=== PATIENT | female | born 1990 | race Hispanic/Latino ===

== ENCOUNTER 2023-05-23 19:17 | Day surgery (SDC) | payer OTHER ==
[2023-05-23 19:34] VITALS: BMI 27.8
== END 2023-05-23 21:40 | disposition home or self-care (01) ==
LOC: CSHLD/OP 19:17
PROVIDERS: ATTEND Obstetrics & Gynecology
DX: O99.891 Other specified diseases and conditions complicating pregnancy (principal); N89.8 Other specified noninflammatory disorders of vagina; O16.3 Unspecified maternal hypertension, third trimester; O44.43 Low lying placenta NOS or without hemorrhage, third trimester; O99.013 Anemia complicating pregnancy, third trimester; D64.9 Anemia, unspecified; R74.01 Elevation of levels of liver transaminase levels; Z3A.40 40 weeks gestation of pregnancy; Z79.82 Long term (current) use of aspirin; Z79.899 Other long term (current) drug therapy; Z87.891 Personal history of nicotine dependence
CPT/HCPCS: 99283

== ENCOUNTER 2023-05-24 05:00 | Inpatient (IN) | payer MEDICAID, OTHER ==
[2023-05-25 01:08] VITALS: BMI 27.6
[2023-05-25] MEDS ORDERED: hydrALAZINE 20 MG/ML VIAL ONE (01:42)
[2023-05-25] MEDS ORDERED: Misoprostol 200 MCG TAB PR PRN (02:00)
[2023-05-25] MEDS ORDERED: Docusate 100 MG CAP PO PRN (02:00)
[2023-05-25] MEDS ORDERED: Methylergonovine 0.2 MG/ML VIAL IM PRN (02:00)
[2023-05-25] MEDS ORDERED: Labetalol HCl 100 MG/20 ML VIAL SLOW IVP PRN (02:00)
[2023-05-25] MEDS ORDERED: Ibuprofen 800 MG TAB PO PRN (02:00)
[2023-05-25] MEDS ORDERED: fentaNYL 50 mcg/mL 1 mL Vial SLOW IVP PRN (02:00)
[2023-05-25] MEDS ORDERED: Acetaminophen 500 MG TAB PO PRN (02:00)
[2023-05-25] MEDS ORDERED: hydrALAZINE 20 MG/ML VIAL SLOW IVP PRN (02:00)
[2023-05-25] MEDS ORDERED: Lorazepam 2 MG/ML VIAL SLOW IVP PRN (02:00)
[2023-05-25] MEDS ORDERED: Calcium Gluc 4.6 MEQ/10 ML (100 MG/ML) SLOW IVP PRN (02:00)
[2023-05-25] MEDS ORDERED: Lidocaine 1% (PF) 30 ML VIAL SC PRN (02:00)
[2023-05-25] MEDS ORDERED: Promethazine HCl 25 MG/ML VIAL IM PRN ×2 (02:00→15:31)
[2023-05-25] MEDS ORDERED: Carboprost 250 MCG/ML AMP IM PRN (02:00)
[2023-05-25] MEDS ORDERED: Tranexamic Acid 1,000 MG/10 ML VIAL IVP PRN (02:00)
[2023-05-25] MEDS ORDERED: Diphenoxylate HCl/Atropine Tablet PO PRN (02:00)
[2023-05-25] MEDS ORDERED: Ondansetron PF 4 MG/2 ML Vial IVP PRN ×2 (02:00→15:31)
[2023-05-25] MEDS ORDERED: Oxytocin 30 units/NS 500 ML 500 ML IV SCH ×2 (02:00)
[2023-05-25] MEDS ORDERED: Misoprostol 100 MCG TAB ONE (02:14)
[2023-05-25 02:21] LABS: #Eosinphils 0.1 10x3/uL (0.0-0.5); #Monocytes 0.5 10x3/uL (0.0-1.1); #Neutrophils 5.1 10x3/uL (1.5-8.4); %Basophils 0.4 % (0.0-2.0); %Eosinophils 0.9 % (0.0-6.0); %Lymphocytes 28.8 % (18.0-47.0); %Monocytes 6.1 % (0.0-10.0); %Neutrophils 63.3 % (40.0-75.0); Hematocrit 38.3 % (34.9-44.5); Hemoglobin 12.6 g/dL (12.0-15.5); Mean Corpuscular HGB CONC 32.9 g/dL (32.0-36.0); Mean Corpuscular Hemoglobin 28.1 pg (27.0-33.0); Mean Corpuscular Volume 85.3 fl (81.6-98.3); Mean Platelet Volume 12.3 fl (7.4-10.4); Platelet Count 266 10x3/uL (150-450); RBC Distribution Width 18.2 % (11.5-14.5); Red Blood Cell (RBC) Count 4.49 10x6/uL (3.90-5.03)
[2023-05-25] MEDS: Misoprostol 100 MCG TAB VAG SCH ×5 (02:24→19:50)
[2023-05-25 02:29] LABS: ALT (SGPT) 13 U/L (8-55); AST (SGOT) 16 U/L (5-34); Albumin 3.6 g/dL (3.5-5.0); Alkaline Phosphatase 230 U/L (40-110); Anion Gap 17 mmol/L (10-20); BUN (Urea Nitrogen) 7 mg/dL (7.0-18.7); Bilirubin, Total 0.6 mg/dL (0.2-1.2); Calc. Creatinine Clearance 144 mL/min (70-130); Calcium 9.7 mg/dL (7.8-10.44); Carbon Dioxide 16 mmol/L (22-29); Chloride 110 mmol/L (98-107); Estimated GFR 123; Globulin 3.1 g/dL (2.4-3.5); Glucose 91 mg/dL (70-105); Protein, Total 6.7 g/dL (6.0-8.3); Sodium 139 mmol/L (136-145)
[2023-05-25] MEDS ORDERED: Magnesium Sulfate 20 gm/500 ml 20 GM/500 ML BAG ONE (02:35)
[2023-05-25] MEDS: Labetalol HCl 100 MG/20 ML VIAL SLOW IVP SCH (02:39)
[2023-05-25] MEDS: Magnesium Sulfate 20 gm/500 ml 20 GM/500 ML BAG IVPB SCH ×3 (02:45→20:47)
[2023-05-25 02:49] LABS: HBSAg Index 0.15 S/CO (0-0.99); Hep B Surf Ag - L&D Non-Reactive S/CO (NonReactive)
[2023-05-25 02:50] LABS: Syphilis Antibody Nonreactive (Nonreactive); Syphilis Antibody Index 0.03 S/CO (<1.00 Non-Reactive)
[2023-05-25 03:50] LABS: Creatinine, Urine Less than 20.00 mg/dL (47-110); Protein, Urine Random Quant Less than 10 mg/dL (1-14)
[2023-05-25] MEDS: Lactated Ringer's 1,000 ML IV SCH ×3 (07:27→15:05)
[2023-05-25] MEDS ORDERED: fentaNYL/Ropivacaine Epidural 100 ML ONE (14:52)
[2023-05-25] MEDS ORDERED: Acetaminophen 325 MG TAB PO PRN (15:31)
[2023-05-25] MEDS ORDERED: Lactated Ringer's 500 ML IV PRN (15:31)
[2023-05-25] MEDS ORDERED: diphenhydrAMINE 50 MG/ML VIAL IVP PRN (15:31)
[2023-05-25] MEDS ORDERED: ePHEDrine Sulfate 50 MG/10 ML VIAL SLOW IVP PRN (15:31)
[2023-05-25] MEDS ORDERED: Naloxone HCl 0.4 mg/ml Vial IVP PRN ×2 (15:31)
[2023-05-25] MEDS ORDERED: Moisturizing Cream (Eucerin) 113 GM JAR TOP PRN (15:31)
[2023-05-25] MEDS ORDERED: Communication Order-Pharmacy FS SCH (15:45)
[2023-05-25] MEDS ORDERED: fentaNYL 2 mcg/Ropivacaine 0.2% Epidural 100 ML CADD EPIDURAL SCH (15:45)
[2023-05-25] MEDS ORDERED: Bupivacaine 0.25% HCL 30 ML VIAL ONE (18:46)
[2023-05-25] MEDS ORDERED: ePHEDrine Sulfate 50 MG/10 ML VIAL ONE (18:46)
[2023-05-25] MEDS ORDERED: Lidocaine 2% MPF 10 ML AMP (For Epidural Use) ONE (18:46)
[2023-05-25] MEDS ORDERED: Lactated Ringer's 1,000 ML IV SCH (21:45)
[2023-05-26] MEDS: Labetalol HCl 100 MG/20 ML VIAL SLOW IVP SCH (00:57)
[2023-05-26] MEDS ORDERED: Bicitra 30 ML UDCUP PO PRN (01:19)
[2023-05-26] MEDS ORDERED: Famotidine/PF 20 mg/2ml Vial SLOW IVP PRN (01:19)
[2023-05-26] MEDS ORDERED: Azithromycin 500 MG VIAL ONE (01:20)
[2023-05-26] MEDS ORDERED: CEFAZOLIN 2 GM VIAL ONE (01:21)
[2023-05-26] MEDS ORDERED: Azithromycin 500 MG in Sodium Chloride 0.9% 250 ML 250 ML IVPB SCH (01:30)
[2023-05-26] MEDS ORDERED: CEFAZOLIN 2 GM in Sodium Chloride 0.9% 100 ML IVPB SCH (01:30)
[2023-05-26] MEDS ORDERED: Moisturizing Cream (Eucerin) 113 GM JAR TOP PRN (01:40)
[2023-05-26] MEDS ORDERED: Promethazine HCl 25 MG SUPP PR PRN (01:40)
[2023-05-26] MEDS ORDERED: diphenhydrAMINE 50 MG/ML VIAL IVP PRN (01:40)
[2023-05-26] MEDS ORDERED: Naloxone HCl 0.4 mg/ml Vial IV PRN (01:40)
[2023-05-26] MEDS ORDERED: Meperidine HCl/PF 25 MG/ML VIAL SLOW IVP PRN (01:40)
[2023-05-26] MEDS ORDERED: fentaNYL 50 mcg/mL 1 mL Vial SLOW IVP PRN (01:40)
[2023-05-26] MEDS ORDERED: Promethazine HCl 25 MG/ML VIAL IM PRN (01:40)
[2023-05-26] MEDS ORDERED: Naloxone HCl 0.4 mg/ml Vial IVP PRN ×2 (01:40)
[2023-05-26] MEDS ORDERED: Ondansetron PF 4 MG/2 ML Vial IVP PRN ×3 (01:40→10:16)
[2023-05-26] MEDS ORDERED: Communication Order-Pharmacy FS SCH (01:45)
[2023-05-26] MEDS ORDERED: Dexamethasone 4 mg/ml Vial ONE (01:47)
[2023-05-26] MEDS ORDERED: Morphine PF 10 MG/10 ML VIAL ONE (01:47)
[2023-05-26] MEDS ORDERED: Oxytocin 10 UNITS/ML VIAL ONE (01:47)
[2023-05-26] MEDS ORDERED: Ketorolac Tromethamine 30 MG/ML VIAL ONE (01:47)
[2023-05-26] MEDS ORDERED: Ondansetron PF 4 MG/2 ML Vial ONE (01:47)
[2023-05-26] MEDS ORDERED: Bupivacaine 0.25% HCL 30 ML VIAL ONE (01:58)
[2023-05-26] MEDS ORDERED: Midazolam HCl 2 mg/2 ml Vial ONE (02:13)
[2023-05-26] MEDS ORDERED: PHENYLEPHRINE-NS 100 MCG/ML 10 ML SYRINGE ONE (02:16)
[2023-05-26] MEDS ORDERED: Diphenoxylate HCl/Atropine Tablet PO SCH (02:30)
[2023-05-26 02:34] LABS: pH (Cord, venous) 7.305 (7.250-7.350)
[2023-05-26] MEDS: Misoprostol 100 MCG TAB VAG SCH ×3 (03:29→21:38)
[2023-05-26] MEDS: Lactated Ringer's 1,000 ML IV SCH ×2 (03:30→21:38)
[2023-05-26 05:38] LABS: Magnesium 6.2 mg/dL (1.6-2.6)
[2023-05-26] MEDS: Magnesium Sulfate 20 gm/500 ml 20 GM/500 ML BAG IVPB SCH (07:08)
[2023-05-26] MEDS: Ketorolac Tromethamine 30 MG/ML VIAL IVP SCH ×3 (08:01→21:23)
[2023-05-26 08:23] LABS: Magnesium 6.2 mg/dL (1.6-2.6)
[2023-05-26] MEDS ORDERED: Oxytocin 30 units/NS 500 ML 500 ML IV SCH (10:16)
[2023-05-26] MEDS ORDERED: NIFEdipine 10 MG CAP PO PRN ×2 (10:16)
[2023-05-26] MEDS ORDERED: hydrALAZINE 20 MG/ML VIAL SLOW IVP PRN (10:16)
[2023-05-26] MEDS ORDERED: Prenatal Vitamin 1 TAB PO SCH (10:16)
[2023-05-26] MEDS ORDERED: Ferrous Sulfate 325 MG TAB PO SCH (10:16)
[2023-05-26] MEDS ORDERED: Calcium Gluc 4.6 MEQ/10 ML (100 MG/ML) SLOW IVP PRN (10:16)
[2023-05-26] MEDS ORDERED: Boostrix 0.5 ML (Tdap) VIAL (>/=7 yrs of age) IM ONE (10:16)
[2023-05-26] MEDS ORDERED: Labetalol HCl 100 MG/20 ML VIAL SLOW IVP PRN (10:16)
[2023-05-26] MEDS ORDERED: Docusate 100 MG CAP PO SCH (10:16)
[2023-05-26] MEDS ORDERED: diphenhydrAMINE 25 MG CAP PO PRN (10:16)
[2023-05-26] MEDS ORDERED: Lorazepam 2 MG/ML VIAL SLOW IVP PRN (10:16)
[2023-05-26] MEDS ORDERED: Magnesium Sulfate 20 gm/500 ml 20 GM/500 ML BAG IVPB SCH (10:16)
[2023-05-26] MEDS ORDERED: Lanolin Ointment 7 GM TUBE TOP PRN (10:16)
[2023-05-26 10:26] LABS: Hematocrit 33.7 % (34.9-44.5); Hemoglobin 11.1 g/dL (12.0-15.5); Mean Corpuscular HGB CONC 32.9 g/dL (32.0-36.0); Mean Corpuscular Hemoglobin 28.3 pg (27.0-33.0); Mean Platelet Volume 11.8 fl (7.4-10.4); Platelet Count 254 10x3/uL (150-450); RBC Distribution Width 18.5 % (11.5-14.5); Red Blood Cell (RBC) Count 3.92 10x6/uL (3.90-5.03); White Blood Cell (WBC) Count 17.6 10x3/uL (3.5-10.5)
[2023-05-26 10:27] LABS: MDiff Complete? YES
[2023-05-26 10:54] LABS: Band 18 % (5-11); Lymphocytes 4 % (21-51); Monocytes 1 % (0-10); Neutrophil 77 % (42-75)
[2023-05-26 11:02] LABS: RBC Morph Comment Within Normal Limits
[2023-05-26 11:03] LABS: Microcytosis SLIGHT = 6-15 cells (100X) (0-5/hpf)
[2023-05-26 11:05] LABS: Large Platelets SLIGHT (None Seen); Platelet Adequacy Comment Appears Adequate
[2023-05-26] MEDS: Acetaminophen 500 MG TAB PO SCH ×2 (11:15→18:12)
[2023-05-26] MEDS: Ferrous Sulfate 325 MG TAB PO SCH (21:19)
[2023-05-26] MEDS: Docusate 100 MG CAP PO SCH (21:24)
[2023-05-27] MEDS: Ketorolac Tromethamine 30 MG/ML VIAL IVP SCH (02:31)
[2023-05-27] MEDS: Simethicone Chewable 80 MG TAB PO PRN ×2 (02:32→16:14)
[2023-05-27] MEDS: Acetaminophen 500 MG TAB PO SCH ×3 (02:32→18:09)
[2023-05-27 05:22] LABS: #Monocytes 0.4 10x3/uL (0.0-1.1); #Neutrophils 12.4 10x3/uL (1.5-8.4); %Basophils 0.1 % (0.0-2.0); %Eosinophils 0.1 % (0.0-6.0); %Lymphocytes 7.6 % (18.0-47.0); %Monocytes 3.2 % (0.0-10.0); %Neutrophils 88.5 % (40.0-75.0); Hematocrit 29.9 % (34.9-44.5); Hemoglobin 9.8 g/dL (12.0-15.5); Mean Corpuscular HGB CONC 32.8 g/dL (32.0-36.0); Mean Corpuscular Hemoglobin 29.1 pg (27.0-33.0); Mean Corpuscular Volume 88.7 fl (81.6-98.3); Mean Platelet Volume 11.3 fl (7.4-10.4); Platelet Count 242 10x3/uL (150-450); RBC Distribution Width 19.1 % (11.5-14.5); Red Blood Cell (RBC) Count 3.37 10x6/uL (3.90-5.03)
[2023-05-27] MEDS ORDERED: Polyethylene Glycol 3350 17 GM Packet PO PRN (07:47)
[2023-05-27] MEDS: Ferrous Sulfate 325 MG TAB PO SCH ×2 (08:50→09:50)
[2023-05-27] MEDS: Ibuprofen 800 MG TAB PO SCH ×3 (08:50→23:09)
[2023-05-27] MEDS: Prenatal Vitamin 1 TAB PO SCH (08:50)
[2023-05-27] MEDS: Docusate 100 MG CAP PO SCH (08:50)
[2023-05-27] MEDS: Senokot 8.6 MG TAB PO SCH (23:10)
[2023-05-28] MEDS: Acetaminophen 500 MG TAB PO SCH ×3 (03:26→17:07)
[2023-05-28 04:31] LABS: #Monocytes 0.4 10x3/uL (0.0-1.1); #Neutrophils 12.3 10x3/uL (1.5-8.4); %Basophils 0.3 % (0.0-2.0); %Eosinophils 0.3 % (0.0-6.0); %Lymphocytes 9.3 % (18.0-47.0); %Monocytes 2.5 % (0.0-10.0); %Neutrophils 86.8 % (40.0-75.0); Hematocrit 32.2 % (34.9-44.5); Hemoglobin 10.3 g/dL (12.0-15.5); Mean Corpuscular Hemoglobin 29.1 pg (27.0-33.0); Mean Platelet Volume 11.7 fl (7.4-10.4); Platelet Count 263 10x3/uL (150-450); RBC Distribution Width 18.8 % (11.5-14.5); Red Blood Cell (RBC) Count 3.54 10x6/uL (3.90-5.03); White Blood Cell (WBC) Count 14.2 10x3/uL (3.5-10.5)
[2023-05-28] MEDS: Ibuprofen 800 MG TAB PO SCH ×3 (06:31→22:17)
[2023-05-28] MEDS ORDERED: HYDROcodone/Acetaminophen 5/325 mg Tablet PO PRN ×2 (07:21→07:22)
[2023-05-28] MEDS: Prenatal Vitamin 1 TAB PO SCH (10:14)
[2023-05-28] MEDS: Polyethylene Glycol 3350 17 GM Packet PO SCH (10:16)
[2023-05-28] MEDS: Simethicone Chewable 80 MG TAB PO PRN (17:07)
[2023-05-28] MEDS: Senokot 8.6 MG TAB PO SCH (21:00)
[2023-05-29] MEDS: Acetaminophen 500 MG TAB PO SCH ×2 (02:57→09:08)
[2023-05-29] MEDS: Ibuprofen 800 MG TAB PO SCH (05:55)
[2023-05-29] MEDS: Ferrous Sulfate 325 MG TAB PO SCH (07:10)
[2023-05-29] MEDS: Polyethylene Glycol 3350 17 GM Packet PO SCH (09:08)
[2023-05-29] MEDS: Simethicone Chewable 80 MG TAB PO PRN (09:08)
[2023-05-29] MEDS: Prenatal Vitamin 1 TAB PO SCH (09:08)
[2023-05-29 11:19] VITALS: BP 118/78; TEMP 97.5
== END 2023-05-29 14:30 | disposition home or self-care (01) | DRG 788 ==
LOC: CSHLD 05-25 00:44 → CSHPED 05-26 13:18
PROVIDERS: ADMIT Family Medicine; ATTEND Family Medicine
PROC: 3E0P7VZ Introduction of Hormone into Female Reproductive, Via Natural or Artificial Opening (ICD-10-PCS; 2023-05-25)
PROC: 10D00Z1 Extraction of Products of Conception, Low, Open Approach (ICD-10-PCS; principal; 2023-05-26)
DX: O14.14 Severe pre-eclampsia complicating childbirth (principal); D64.9 Anemia, unspecified; Z79.899 Other long term (current) drug therapy; Z37.0 Single live birth; Z3A.40 40 weeks gestation of pregnancy; O42.02 Full-term premature rupture of membranes, onset of labor within 24 hours of rupture; O62.1 Secondary uterine inertia; O13.4 Gestational [pregnancy-induced] hypertension without significant proteinuria, complicating childbirth; O99.02 Anemia complicating childbirth; O75.81 Maternal exhaustion complicating labor and delivery; D25.9 Leiomyoma of uterus, unspecified; O99.892 Other specified diseases and conditions complicating childbirth; O77.0 Labor and delivery complicated by meconium in amniotic fluid; D25.1 Intramural leiomyoma of uterus; O26.843 Uterine size-date discrepancy, third trimester
CPT/HCPCS: 36415; 51701; 51702; 80053; 82570; 82805; 83735; 84156; 85025; 86780; 86850; 86900; 86901; 87340; 88307; J0360; J1100; J1650; J1885; J2250; J2274; J2405; J2590; J3475; J7120; S0020

== ENCOUNTER 2023-06-08 19:38 | Observation (INO) | payer MEDICAID, SELFPAY ==
[2023-06-08 20:36] LABS: #Basophils 0.1 10x3/uL (0.0-0.2); #Eosinphils 0.1 10x3/uL (0.0-0.5); #Monocytes 0.4 10x3/uL (0.0-1.1); #Neutrophils 8.7 10x3/uL (1.5-8.4); %Basophils 0.5 % (0.0-2.0); %Lymphocytes 19.6 % (18.0-47.0); %Monocytes 2.9 % (0.0-10.0); %Neutrophils 73.1 % (40.0-75.0); Hematocrit 33.5 % (34.9-44.5); Hemoglobin 10.8 g/dL (12.0-15.5); Mean Corpuscular HGB CONC 32.2 g/dL (32.0-36.0); Mean Corpuscular Hemoglobin 27.7 pg (27.0-33.0); Mean Corpuscular Volume 85.9 fl (81.6-98.3); Platelet Count 555 10x3/uL (150-450); RBC Distribution Width 16.5 % (11.5-14.5); White Blood Cell (WBC) Count 11.9 10x3/uL (3.5-10.5)
[2023-06-08 20:47] LABS: ALT (SGPT) 22 U/L (8-55); AST (SGOT) 15 U/L (5-34); Albumin 3.5 g/dL (3.5-5.0); Alkaline Phosphatase 153 U/L (40-110); Anion Gap 16 mmol/L (10-20); BUN (Urea Nitrogen) 16 mg/dL (7.0-18.7); Bilirubin, Total 0.3 mg/dL (0.2-1.2); Calc. Creatinine Clearance 0 mL/min (70-130); Calcium 9.2 mg/dL (7.8-10.44); Carbon Dioxide 22 mmol/L (22-29); Chloride 105 mmol/L (98-107); Estimated GFR 122; Globulin 3.7 g/dL (2.4-3.5); Glucose 106 mg/dL (70-105); Potassium 3.5 mmol/L (3.5-5.1); Protein, Total 7.2 g/dL (6.0-8.3); Sodium 139 mmol/L (136-145)
[2023-06-08 20:50] LABS: PTT 31.3 sec (22.0-33.0); Prothrombin Time 10.7 sec (9.5-12.1)
[2023-06-08] MEDS ORDERED: Ondansetron ODT 4 MG TAB PO PRN (22:39)
[2023-06-08] MEDS ORDERED: Misoprostol 200 MCG TAB ONE (22:58)
[2023-06-09] MEDS ORDERED: fentaNYL 50 mcg/mL 1 mL Vial ONE (00:26)
[2023-06-09] MEDS: Misoprostol 200 MCG TAB ONE (00:33)
[2023-06-09] MEDS ORDERED: Oxytocin 30 units/NS 500 ML 500 ML ONE (01:01)
[2023-06-09] MEDS: Clindamycin/D5W 900 MG in Premix 1 BAG IVPB SCH ×3 (03:59→21:14)
[2023-06-09] MEDS ORDERED: Lactated Ringer's 1,000 ML IV SCH (04:00)
[2023-06-09 05:17] LABS: #Basophils 0.1 10x3/uL (0.0-0.2); #Monocytes 0.3 10x3/uL (0.0-1.1); #Neutrophils 15.9 10x3/uL (1.5-8.4); %Basophils 0.3 % (0.0-2.0); %Eosinophils 0.1 % (0.0-6.0); %Lymphocytes 7.7 % (18.0-47.0); %Monocytes 1.4 % (0.0-10.0); %Neutrophils 88.4 % (40.0-75.0); Hemoglobin 7.6 g/dL (12.0-15.5); Mean Corpuscular Hemoglobin 28.7 pg (27.0-33.0); Mean Corpuscular Volume 86.8 fl (81.6-98.3); Platelet Count 479 10x3/uL (150-450); RBC Distribution Width 16.3 % (11.5-14.5); Red Blood Cell (RBC) Count 2.65 10x6/uL (3.90-5.03)
[2023-06-09] MEDS: Gentamicin Sulfate 300 MG in Sodium Chloride 0.9% 100 ML IVPB SCH (05:32)
[2023-06-09 06:01] LABS: Bilirubin Neg (Negative); Blood, Urine 250 (Negative); Clarity Slightly Cloudy (Clear); Glucose, Urine (Dipstick) Normal (Negative); Ketone, Urine Negative (Negative); Leukocyte 100 (Negative); Nitrite Negative (Negative); Protein, Urine (Dipstick) 100 mg/dl (Neg-Trace); Urobilinogen Normal mg/dL (Less than 2)
[2023-06-09 06:28] LABS: Bacteria/HPF 1+ HPF (None Seen); CAUTI Indications for Culture Dysuria,urgency,freq; RBC/HPF Greater than 50 HPF (0-3); Squamous Epithelial 0-3 HPF (0-3)
[2023-06-09 06:29] LABS: Urine Culture Reflex No No
[2023-06-10] MEDS: Clindamycin/D5W 900 MG in Premix 1 BAG IVPB SCH ×2 (03:56→11:49)
[2023-06-10] MEDS: Acetaminophen 325 MG TAB PO PRN ×2 (04:21→09:16)
[2023-06-10] MEDS: Gentamicin Sulfate 300 MG in Sodium Chloride 0.9% 100 ML IVPB SCH (05:13)
[2023-06-10 05:19] LABS: #Eosinphils 0.1 10x3/uL (0.0-0.5); #Monocytes 0.3 10x3/uL (0.0-1.1); #Neutrophils 4.5 10x3/uL (1.5-8.4); %Basophils 0.4 % (0.0-2.0); %Eosinophils 1.4 % (0.0-6.0); %Lymphocytes 34.7 % (18.0-47.0); %Monocytes 3.7 % (0.0-10.0); %Neutrophils 56.7 % (40.0-75.0); Hematocrit 20.8 % (34.9-44.5); Hemoglobin 6.7 g/dL (12.0-15.5); Mean Corpuscular HGB CONC 32.2 g/dL (32.0-36.0); Mean Corpuscular Hemoglobin 28.3 pg (27.0-33.0); Mean Corpuscular Volume 87.8 fl (81.6-98.3); Mean Platelet Volume 9.2 fl (7.4-10.4); Platelet Count 444 10x3/uL (150-450); RBC Distribution Width 17.1 % (11.5-14.5); Red Blood Cell (RBC) Count 2.37 10x6/uL (3.90-5.03); White Blood Cell (WBC) Count 7.9 10x3/uL (3.5-10.5)
[2023-06-10] MEDS ORDERED: Ferrous Sulfate 325 MG TAB PO SCH (07:30)
[2023-06-10 11:18] VITALS: BP 115/60; TEMP 98.1
== END 2023-06-10 13:40 | disposition home or self-care (01) ==
LOC: CSHERS 19:38 → CSHPP 06-09 00:20
PROVIDERS: ADMIT Family Medicine; ATTEND Family Medicine
DX: O72.1 Other immediate postpartum hemorrhage (principal); O90.81 Anemia of the puerperium; D64.9 Anemia, unspecified; R30.0 Dysuria; Z79.899 Other long term (current) drug therapy
CPT/HCPCS: 36415; 76856; 80053; 81001; 85025; 85610; 85730; 86850; 86900; 86901; 96360; 96361; 96374; 96375; 96376; G0378; J1580; J2590; J3010; J3490; J7120; Q0162

== ENCOUNTER 2023-07-08 06:28 | Observation (INO) | payer SELFPAY ==
[2023-07-08] MEDS ORDERED: Labetalol HCl 100 MG/20 ML VIAL SLOW IVP PRN (08:03)
[2023-07-08 08:38] LABS: Amphetamine Not Detected (NotDetected); Barbiturates Screen Not Detected (NotDetected); Benzodiazepine Screen Not Detected (NotDetected); Cocaine Metabolite Screen Not Detected (NotDetected); Methadone Not Detected (NotDetected); Methamphetamine Not Detected (NotDetected); Opiate Screen Not Detected (NotDetected); Oxycodone Screen Not Detected (NotDetected); Phencyclidine (PCP) Not Detected (NotDetected); THC/Cannabinoid Screen Not Detected (NotDetected); Tricyclic Screen Not Detected (NotDetected)
[2023-07-08] MEDS ORDERED: Aspirin 81 mg Enteric Coated Tablet PO SCH (09:00)
[2023-07-08 15:35] LABS: Hemoglobin A1c 4.8 % (4.0-6.0)
[2023-07-08] MEDS: Lactated Ringer's 1,000 ML IV SCH ×2 (15:58→22:02)
[2023-07-08 16:43] VITALS: BMI 21.6
[2023-07-09 03:52] LABS: Cardiac Risk 5.4 (Less than 4.5)
[2023-07-09] MEDS ORDERED: Aspirin 81 mg Enteric Coated Tablet PO SCH (09:00)
[2023-07-09] MEDS: Lactated Ringer's 1,000 ML IV SCH (09:04)
[2023-07-09] MEDS ORDERED: FLUoxetine HCl 20 MG CAP PO SCH (13:30)
[2023-07-09] MEDS ORDERED: Iopamidol 370 76% 100 ML VIAL ONE (13:50)
[2023-07-09 18:36] VITALS: BP 150/81; TEMP 98
[2023-07-10] MEDS ORDERED: FLUoxetine HCl 20 MG CAP PO SCH (09:00)
== END 2023-07-09 19:55 | disposition home or self-care (01) ==
LOC: CSHLD/OP 06:28 → CSHTELE 15:49
PROVIDERS: ADMIT Emergency Medicine; ATTEND Emergency Medicine
DX: R20.2 Paresthesia of skin (principal); D64.9 Anemia, unspecified; I10 Essential (primary) hypertension; Z79.899 Other long term (current) drug therapy
CPT/HCPCS: 36415; 70450; 70551; 71275; 80061; 80306; 83036; 83880; 84443; 85379; 93005; 93010; 96372; 99284; G0378; J1650; J7120; Q9967